=== PATIENT | male | born 1950 | race Two or more races ===

== ENCOUNTER 2017-06-06 09:47 | Outpatient (CLI) | payer MEDICARE, OTHER ==
[~2017-06-06] VITALS: Ht 165.1 cm; Wt 68.0 kg
[2017-06-06] MEDS ORDERED: VITAMIN D250000 UNI1 ORAL (13:30)
[2017-06-06] MEDS ORDERED: MIRALAX17 G2 ORAL (13:30)
[2017-06-06] MEDS ORDERED: COLACE100 MG ORAL (13:30)
[2017-06-06] MEDS ORDERED: REMERON15 MG ORAL (13:30)
[2017-06-06] MEDS ORDERED: LUPRON DEPOT7.5 MG IM (13:30)
[2017-06-06 13:31] VITALS: BP 130/84
--- NOTE | 2017-06-07 10:12 | GI Initial Consult Note ---
History of Present Illness General Date patient seen: Jun 07, 2017 Time patient seen: 10:05 Referring physician: MORENO Reason for Consultation: BLOOD IN STOOL Present Illness HPI 67 year old male patient referred by Dr. Styles for evaluation of possible GI bleed. THe patient presents today with c/o of blood in stool, possible rectal bleed and constipation. No previous history of colonoscopy. Denies any unintentional weight loss or changes in dietary habits. No signs of abuse or neglect. Patient is not fall risk. Home Meds Reported Medications Ergocalciferol (Vitamin D2)* (VITAMIN D*) 50,000 Unit Capsule, [id number] UNIT ORAL ONCE A WEEK, CAP 06/06/17 Mirtazapine* (REMERON*) 15 Mg Tablet, 15 MG ORAL BEDTIME, TAB 06/06/17 Docusate Sodium* (COLACE*) 100 Mg Capsule, 100 MG ORAL DAILY, CAP 06/06/17 Polyethylene Glycol 3350* (MIRALAX*) 17 Gm Powd.pack, 17 GM ORAL DAILY, PACKET 06/06/17 Leuprolide Acetate (LUPRON DEPOT) 7.5 Mg Syringekit, 7.5 MG IM, SYRKIT 06/06/17 Med list reviewed/reconciled: Yes Allergies: Coded Allergies: No Known Allergies (Unverified , 06/06/17) Patient History PMH Narrative BPH prostate CA with mets >> s/p radiation dementia, memory loss Past Surgical History: None Pertinent Family History: none Social History: Reports: smoking - quit, alcohol use - quit Review of Systems All Other Systems: negative except mentioned in HPI Physical Exam Vital Signs Date Time Temp Pulse Resp B/P (MAP) Pulse Ox O2 Delivery O2 Flow Rate FiO2 06/06/17 13:31 98.1 80 16 130/84 96 98.1 Sp02 EP Interpretation: reviewed, normal General Appearance: well appearing, no apparent distress, alert Head: normocephalic EENT: PERRL/EOMI, normal ENT inspection Neck: supple Respiratory: normal breath sounds, no respiratory distress Cardiovascular: normal rate Gastrointestinal: normal inspection, non tender, soft, normal bowel sounds, non -distended Rectal: deferred Genitourinary: deferred Musculoskeletal: normal inspection, back normal Neurologic: normal inspection, alert, oriented x3, responsive Psychiatric: normal inspection, judgement/insight normal, memory normal Skin: normal inspection, normal color, no rash, warm/dry, palpation normal, well hydrated Lymphatic: normal inspection, no adenopathy GI: Plan Problems: (1) GI bleed (2) Bloody stool (3) Colonoscopy planned Plan EGD/colonoscopy scheduled 06/12/17. - CLD & (Nulytely/Suprep/Movi-Prep) prep instructions given and acknowledged by patient. - NPO @ ID day prior procedure explained. Seen with Dr. Santana. Thank you for this patient referral. Marilee Gomez N.P. Jun 07, 2017 10:12
== END 2017-06-06 10:20 | disposition home or self-care (01) ==
LOC: PAN 09:47
DX: K92.2 Gastrointestinal hemorrhage, unspecified (principal); K92.1 Melena; Z85.46 Personal history of malignant neoplasm of prostate; F03.90 Unspecified dementia, unspecified severity, without behavioral disturbance, psychotic disturbance, mood disturbance, and anxiety; Z87.891 Personal history of nicotine dependence
CPT/HCPCS: 99201

== ENCOUNTER 2017-06-12 08:09 | Day surgery (SDC) | payer MEDICARE, OTHER ==
[~2017-06-12] VITALS: Ht 165.1 cm; Wt 68.9 kg
[2017-06-12] VITALS (8 sets, daily range): BP systolic 121–144; BP diastolic 74–92
[~2017-06-12 08:09] MED LIST: COLACE100 MG ORAL; LUPRON DEPOT7.5 MG IM; MIRALAX17 G2 ORAL; REMERON15 MG ORAL; VITAMIN D250000 UNI1 ORAL
[2017-06-12] MEDS ORDERED: MULTIVITAMINS1 EAC2 ORAL (08:55)
[2017-06-12] MEDS ORDERED: TAMSULOSIN HCL0.4 MG ORAL (08:55)
[2017-06-12] MEDS ORDERED: ASPIR 8181 MG ORAL (08:55)
[2017-06-12] MEDS ORDERED: Propofol 200mg/20ml IV ONE (10:00)
[2017-06-12] MEDS ORDERED: Lidocaine 1% MPF 10mg/ml 5ml ONE (10:00)
--- NOTE | 2017-06-12 10:02 | Pre-Procedure Note/Attestation ---
Pre-Procedure Note/Attestation Complete Prior to Procedure Planned Procedure: not applicable Procedure Narrative: esophagogastroduodenoscopy and colonoscopy Indications for Procedure Pre-Operative Diagnosis: screening colon, GERD Attestation I attest that I discussed the nature of the procedure; its benefits; risks and complications; and alternatives (and the risks and benefits of such alternatives ), prior to the procedure, with the patient (or the patient's legal commercial pest control representative). I attest that, if there was a reasonable possibility of needing a blood transfusion, the patient (or the patient's legal commercial pest control representative) was given the [facility] standardized written summary, pursuant to the [place] Blood Safety Act ([place] Health and Safety Code # 1645, as amended). I attest that I re-evaluated the patient just prior to the surgery and that there has been no change in the patient's H&P, except as documented below: PITA ELLIS Jun 12, 2017 10:02
--- NOTE | 2017-06-12 10:03 | Short Stay Surgery H&P ---
History of Present Illness History of Present Illness Chief Complaint see recent clinic consult note HPI Juan Jose Rene is a 67 year old male who was admitted on for Gi Bleed Patient History Allergies: Coded Allergies: No Known Allergies (Unverified , 06/12/17) Medication History Scheduled Aspirin* (Aspir 81*), 81 MG ORAL DAILY, (Reported) Docusate Sodium* (Colace*), 100 MG ORAL DAILY, (Reported) Ergocalciferol (Vitamin D2)* (Vitamin D*), 50,000 UNIT ORAL ONCE A WEEK, ( Reported) Mirtazapine* (Remeron*), 15 MG ORAL BEDTIME, (Reported) Multivitamins* (Multivitamins*), 1 TAB ORAL DAILY, (Reported) Polyethylene Glycol 3350* (Miralax*), 17 GM ORAL DAILY, (Reported) Tamsulosin Hcl (Tamsulosin Hcl*), 0.4 MG ORAL BEDTIME, (Reported) Miscellaneous Medications Leuprolide Acetate (Lupron Depot), 7.5 MG IM, (Reported) Physical Exam Vital Signs Last Vital Signs Date Time Temp Pulse Resp B/P (MAP) Pulse Ox O2 Delivery O2 Flow Rate FiO2 06/12/17 08:44 98.1 92 18 144/92 96 Room Air 98.1 Plan Attestation Are the patient's medical conditions optimized for surgery? PITA ELLIS Jun 12, 2017 10:03
--- NOTE | 2017-06-12 10:34 | Endoscopy Procedure Note ---
Endoscopy Procedure Note General Indication for Procedure: rectal bleed Procedures Performed: EGD, colonoscopy Operative Findings/Diagnosis: rectal AVM, gastritis, one colon polyp Specimen: yes Pt Tolerated Procedure Well: Yes Estimated Blood Loss: none Anesthesia Anesthesiologist: zac Anesthesia: MAC Inserted Devices Implant(s) used?: No Quality Quality of Bowel Preparation: Excellent Did scope reach the cecum?: Yes Was there any complications?: No GI Core Measures 50 yrs or older w/o bx or poly: No 10yrs. F/U not recommended: Yes If not recommended, why?: Above average risk 10 yrs. F/U needed: Yes 18 years or older w/prev. colo: No PITA ELLIS Jun 12, 2017 10:34
--- NOTE | 2017-06-12 10:36 | Anethesia Preoperative Eval ---
Anesthesia Pre-op PMH/ROS General Date of Evaluation: Jun 12, 2017 Time of Evaluation: 09:45 Anesthesiologist: jorge ASA Score: ASA 3 Mallampati Score Class I : Soft palate, uvula, fauces, pillars visible Class II: Soft palate, uvula, fauces visible Class III: Soft palate, base of uvula visible Class IV: Only hard plate visible Mallampati Classification: Class II Surgeon: samantha Diagnosis: gi bleed Surgical Procedure: egd/colonoscopy Anesthesia History: none Social History: smoking, alcohol use Family History: no anesthesia problems Allergies: Coded Allergies: No Known Allergies (Unverified , 06/12/17) Medications: see eMAR Past Medical History Gastrointestinal/Genitourinary: Reports: other - prostate cancer Hematology/Immune: Reports: anemia Musculoskeletal/Integumentary: Reports: OA Anesthesia Pre-op Phys. Exam Physician Exam Last Vital Signs Date Time Temp Pulse Resp B/P (MAP) Pulse Ox O2 Delivery O2 Flow Rate FiO2 06/12/17 08:44 98.1 92 18 144/92 96 Room Air 98.1 Constitutional: NAD Neurologic: CN 2-12 intact Cardiovascular: RRR Respiratory: CTA Gastrointestinal: S/NT/ND Airway Exam Mallampati Score: Class II MO: limited Neck: supple TMD: 2fb ROM: limited Teeth: intact Anesthesia Pre-op A/P Risk Assessment & Plan Assessment: asa3 Plan: mac Status Change Before Surgery: No Pre-Antibiotics Drug: MARCIE Garcia Jun 12, 2017 10:36
[2017-06-12] MEDS ORDERED: Atropine Inj 1mg/10ml Syr IV PRN (10:45)
[2017-06-12] MEDS ORDERED: Midazolam 2mg/2ml Inj IVP PRN (10:45)
[2017-06-12] MEDS ORDERED: fentaNYL 100 mcg/2 mL IV PRN (10:45)
[2017-06-12] MEDS ORDERED: DiphenhydrAMINE 50mg/ml Inj IVP PRN (10:45)
[2017-06-12 11:09] LABS: BASOPHILS % (AUTO) 1.1 % (0.0-2.0); EOSINOPHILS % (AUTO) 1.2 % (0.0-3.0); HEMATOCRIT 35.7 % (42.0-52.0); HEMOGLOBIN 11.5 G/DL (14.2-18.0); MEAN CORPUSCULAR VOLUME 83 FL (80-99); MONOCYTES % (AUTO) 5.8 % (1.0-10.0); NEUTROPHILS % (AUTO) 66.8 % (45.0-75.0); PLATELET COUNT 278 K/UL (150-450); RED BLOOD COUNT 4.33 M/UL (4.70-6.10); RED CELL DISTRIBUTION WIDTH 17.5 % (11.6-14.8); WHITE BLOOD COUNT 4.8 K/UL (4.8-10.8)
[2017-06-12 11:18] LABS: ALANINE AMINOTRANSFERASE 19 U/L (12-78); ALBUMIN 3.2 G/DL (3.4-5.0); ALBUMIN/GLOBULIN RATIO 0.9 (1.0-2.7); ALKALINE PHOSPHATASE 183 U/L (46-116); ANION GAP 9 mmol/L (5-15); ASPARTATE AMINO TRANSFERASE 19 U/L (15-37); BILIRUBIN,TOTAL 0.9 MG/DL (0.2-1.0); BLOOD UREA NITROGEN 11 mg/dL (7-18); CALCIUM 8.8 MG/DL (8.5-10.1); CARBON DIOXIDE 25 MMOL/L (21-32); CHLORIDE 105 MMOL/L (98-107); POTASSIUM 3.7 MMOL/L (3.5-5.1); SODIUM 139 MMOL/L (136-145)
--- NOTE | 2017-06-12 16:45 | Procedure Note ---
DATE OF PROCEDURE: 06/12/2017 SURGEON: Brennan Santana M.D. PROCEDURE: Upper endoscopy with biopsy, colonoscopy with biopsy, and hemostasis. ANESTHESIA: Per Dr. Stewart. REFERRING PHYSICIAN: Erin Styles M.D. INSTRUMENT: Olympus adult flexible upper endoscope and colonoscope. INDICATION: History of prostate cancer and rectal bleeding The procedure, risks, benefits, and possible consequences, including hemorrhage, aspiration, perforation and infection, and alternative treatments, were explained to the patient/legal guardian by Dr. Brennan Santana and the patient/legal guardian understood and accepted these risks. DESCRIPTION OF PROCEDURE: After informed consent was obtained and the patient was adequately sedated, first Olympus upper endoscope was advanced from mouth to the second portion of the duodenum and retroflexion was performed in the stomach. The patient has diffuse severe gastritis suspicious for portal hypertensive gastropathy. Biopsy from the antrum and body was obtained for diagnosis. The rest of the upper endoscopic examination was grossly within normal limits. At this time, the upper endoscope was retrieved. The patient was turned over for colonoscopy. First, a rectal exam was performed, which was normal. Then, the scope was advanced from rectum into the cecum documented by the appendiceal orifice, ileocecal valve, and right upper quadrant palpation. Quality of prep was very good. The patient had one small polyp measured roughly about 4 mm in the proximal transverse colon, removed with the cold biopsy forceps technique. There was no further polyps in this colonoscopy examination. In the rectum area, the patient had multiple AVMs, very friable, most probably the source of bleeding. Even the scope touching that area was causing bleeding. At this time, we started a hemostasis procedure with using an APC and cauterizing all these AVMs in the rectum, which was successful. Retroflexion of rectum showed evidence of small internal hemorrhoids. The patient tolerated the procedure very well without any complication. SUMMARY OF FINDINGS: 1. Severe gastritis, suspicious for portal hypertensive gastropathy, status post biopsy. 2. One colonic polyp removed. See above for details. 3. Rectal AVMs, status post hemostasis. 4. Internal hemorrhoids. RECOMMENDATIONS: 1. Follow up biopsy results. 2. The patient needs an abdominal ultrasound for evaluation of liver disease given the questionable portal hypertensive gastropathy. 3. The patient is to follow up in the office for further evaluation. I want to thank, Dr. Erin Styles, for this kind referral. Brennanmichelle Santana M.D. DR: SOFI JOB#: [id number] CC: Erin Styles M.D.; Fax#: [phone]
--- NOTE | 2017-06-12 21:53 | Immediate Post-Op Evaluation ---
Immediate Post-Op Evalulation Immediate Post-Op Evalulation Procedure: egd/colonoscopy/bx Date of Evaluation: Jun 12, 2017 Time of Evaluation: 10:50 IV Fluids: 250ml 0.9ns Blood Products: none Estimated Blood Loss: negligible Blood Pressure Systolic: 121 Blood Pressure Diastolic: 74 Pulse Rate: 66 Respiratory Rate: 18 O2 Sat by Pulse Oximetry: 99 Temperature (Fahrenheit): 97.4 Pain Score (1-10): 0 Nausea: No Vomiting: No Complications none Patient Status: awake, reacts, patent Hydration Status: adequate Drug: MARCIE Garica Jun 12, 2017 21:53
--- NOTE | 2017-06-12 21:56 | 48 Hour Post Anesthesia Eval ---
Post Anesthesia Evaluation Procedure: egd/colonoscopy/bx Date of Evaluation: Jun 12, 2017 Time of Evaluation: 10:52 Blood Pressure Systolic: 130 0: 77 Pulse Rate: 68 Respiratory Rate: 18 Temperature (Fahrenheit): 97.4 O2 Sat by Pulse Oximetry: 99 Airway: patent Nausea: No Vomiting: No Pain Intensity: 0 Hydration Status: adequate Cardiopulmonary Status: stable Mental Status/LOC: patient returned to baseline Post-Anesthesia Complications: none Follow-up care needed: N/A MARCIE GONZALEZ Jun 12, 2017 21:56
== END 2017-06-12 11:45 | disposition home or self-care (01) ==
LOC: GAS 08:09
DX: K29.70 Gastritis, unspecified, without bleeding (principal); K63.5 Polyp of colon; K64.8 Other hemorrhoids; Z85.46 Personal history of malignant neoplasm of prostate; Z79.82 Long term (current) use of aspirin; M19.90 Unspecified osteoarthritis, unspecified site
CPT/HCPCS: 36415; 43239; 45380; 80053; 85025; 93005; J2704; 94003; 94150

== ENCOUNTER 2017-07-04 09:22 | Outpatient (CLI) | payer MEDICARE, OTHER ==
[~2017-07-04 09:22] MED LIST changes: +ASPIR 8181 MG ORAL; +MULTIVITAMINS1 EAC2 ORAL; +TAMSULOSIN HCL0.4 MG ORAL
[2017-07-04 09:33] VITALS: BP 107/70
--- NOTE | 2017-07-04 17:44 | GI Progress Note ---
Assessment/Plan Status: stable Status Narrative Seen with Dr. Santana. Assessment/Plan SUMMARY OF FINDINGS reviewed with patient: 1. Severe gastritis, suspicious for portal hypertensive gastropathy, status post biopsy. 2. One colonic polyp removed. See above for details. 3. Rectal AVMs, status post hemostasis. 4. Internal hemorrhoids. RECOMMENDATIONS: 1. Follow up biopsy results. >> H. Pylori Positive H. Pylori Treatment >> - Amoxicillin 1g BID - Biaxin 500mb BID - Omeprazole 40mg x 2 weeks followed by Omeprazole 40mg PO daily x 6 weeks 2. The patient needs an abdominal ultrasound for evaluation of liver disease given the questionable portal hypertensive gastropathy. RTC x 3 month for repeat Breath Test The patient was seen and examined at bedside and all new and available data was reviewed in the patients chart. I agree with the above findings, impression and plan. (Patient seen earlier today. Signature stamp does not reflect patient encounter time.). - Brennan Santana MD Subjective Gastrointestinal/Abdominal: Reports: no symptoms Objective Last 24 Hour Vital Signs Date Time Temp Pulse Resp B/P (MAP) Pulse Ox O2 Delivery O2 Flow Rate FiO2 07/04/17 09:33 98.5 70 16 107/70 96 98.5 General Appearance: WD/WN, no apparent distress, alert Cardiovascular: normal rate Respiratory/Chest: normal breath sounds, no respiratory distress Abdominal Exam: normal bowel sounds, non tender, soft Extremities: normal range of motion, non-tender Hanna Gomez NP July 04, 2017 17:44
== END 2017-07-04 09:55 | disposition home or self-care (01) ==
LOC: PAN 09:22
DX: K29.70 Gastritis, unspecified, without bleeding (principal); K63.5 Polyp of colon; K64.8 Other hemorrhoids
CPT/HCPCS: 99212

== ENCOUNTER 2017-07-21 08:27 | Outpatient (CLI) | payer MEDICARE, OTHER ==
--- NOTE | 2017-07-21 12:57 | Diagnostic Imaging Report ---
Indication: Elevated liver function tests Technique: Grayscale and duplex Doppler imaging of the abdomen performed. Comparison: None Findings: The liver, demonstrated part of the pancreas, gallbladder, aorta and IVC, spleen appear unremarkable. There is a small right pleural effusion and trace left pleural effusion. There are calcifications within both kidneys which may be small nonobstructive stones. This CBD is 5 mm. There is a suspected tiny gallbladder polyp. There is no biliary ductal dilatation identified. Doppler evaluation of the main portal vein shows patency. There is no ascites. No hydronephrosis seen. Impression: Suspected tiny nonobstructive stones within the kidneys. Suspected small gallbladder polyp. Small right pleural effusion. Trace left pleural effusion.
== END 2017-07-21 10:27 | disposition home or self-care (01) ==
LOC: ULS 08:27
DX: R79.89 Other specified abnormal findings of blood chemistry (principal)
CPT/HCPCS: 76700

== ENCOUNTER 2017-10-03 09:37 | Outpatient (CLI) | payer MEDICARE, OTHER ==
[2017-10-03 13:55] VITALS: BP 112/77
--- NOTE | 2017-10-03 15:44 | GI Progress Note ---
Assessment/Plan Problems: (1) H. pylori infection ICD Codes: A04.8 - Other specified bacterial intestinal infections SNOMED: [id number] Status: stable Status Narrative Seen with Dr. Santana. Assessment/Plan H. Pylori infection s/p treatment >> patient only finished 1.5 weeks of antibiotics will repeat BT today will contact patient with results and follow with additional recommendations RTC x 3 months for repeat abdominal US The patient was seen and examined at bedside and all new and available data was reviewed in the patients chart. I agree with the above findings, impression and plan. (Patient seen earlier today. Signature stamp does not reflect patient encounter time.). - Bernnan Santana MD Subjective Gastrointestinal/Abdominal: Reports: no symptoms Objective Last 24 Hour Vital Signs Date Time Temp Pulse Resp B/P (MAP) Pulse Ox O2 Delivery O2 Flow Rate FiO2 10/03/17 13:55 98.2 78 112/77 94 98.2 Laboratory Tests Test 10/03/17 10:00 Helicobacter pylori Breath Test Pending General Appearance: WD/WN, no apparent distress, alert Cardiovascular: normal rate Respiratory/Chest: normal breath sounds, no respiratory distress Abdominal Exam: normal bowel sounds, non tender, soft Extremities: normal range of motion, non-tender Hanna Gomez [employer]CH[employer] SPECIALIST Oct 03, 2017 15:44
== END 2017-10-03 10:07 | disposition home or self-care (01) ==
LOC: PAN 09:37
DX: A04.8 Other specified bacterial intestinal infections (principal)
CPT/HCPCS: 83013; G0463; 99212